=== PATIENT | male | born 1975 | race Caucasian/White ===

== ENCOUNTER 2019-03-29 11:24 | Inpatient (IN) | payer BC ==
[2019-03-29] MEDS ORDERED: SODIUM CHLORIDE 0.9% 1,000 ML IV STA (11:33)
[2019-03-29] MEDS ORDERED: ONDANSETRON 4 MG/2 ML VIAL IVP STA (11:34)
[2019-03-29] MEDS ORDERED: MORPHINE SULFATE 4 MG/ML SYRINGE IVP PRN (11:55)
--- NOTE | 2019-03-29 11:58 | ED ---
General Adult HPI - General Chief complaint: Abdominal Pain Stated complaint: abd pain, vomiting Time Seen by Provider: 03/29/19 11:33 Source: patient Mode of arrival: ambulatory Limitations: no limitations - History of Present Illness Initial comments: Dictation was produced using [employer] dictation software. please excuse any grammatical, word or spelling errors. Chief Complaint: 43-year-old male in no significant comorbidities presents with abdominal pain, nausea. History of Present Illness: Patient is a 43-year-old male he has no significant comorbidities. Patient states that over the last 2-3 days has been having worsening abdominal pain, nausea and vomiting. Patient states that he has not been passing gas or having bowel movements over the last 48-72 hours. Patient has any fevers. States that his pain is diffuse however concentrated in the left upper and left lower quadrant. Denies any history of abdominal surgery. Been eating. However has been drinking. His emesis is bilious in color. The ROS documented in this emergency department record has been reviewed and confirmed by me. Those systems with pertinent positive or negative responses have been documented in the HPI. All other systems are other negative and/or noncontributory. PHYSICAL EXAM: General Impression: Alert and oriented x3, acute distress secondary to pain HEENT: Normocephalic atraumatic, extra-ocular movements intact, pupils equal and reactive to light bilaterally, mucous membranes moist. Cardiovascular: Heart regular rate and rhythm, S1&S2 audible, no murmurs, rubs or gallops Chest: Lungs clear to auscultation bilaterally, no rhonchi, no wheeze, no rales Abdomen: Hypoactive bowel sounds, diffuse abdominal tenderness, positive tympany Musculoskeletal: Pulses present and equal in all extremities, no peripheral jeremiah ma Motor: no focal deficits noted Neurological: CN II-XII grossly intact, no focal motor or sensory deficits noted Skin: Intact with no visualized rashes Psych: Normal affect and mood ED course: 43-year-old male presents with chief complaint of nausea, vomiting and abdominal pain for 3 days. Sans upon arrival shows heart rate 140, worse vital signs within acceptable limits. Laboratory evaluation obtained. Leukocytosis 20.2, metabolic panel is grossly unremarkable. Patient is lipase of 4,087. Computed tomography scan of the abdomen and pelvis shows a complex acute pancreatitis. Patient given intravenous fluids, IV analgesia. Patient to be admitted with consultation to gastroenterology. More history was obtained from patient. He drinks EtOH frequently. This is likely secondary to biliary sludge causing occlusion of the pancreatic duct system. At this point we will withhold any ultrasound at this time. EKG interpretation: Ventricular rate 136, sinus tachycardia, WY interval 126, QRS 80, QTc 466. No WY prolongation, no QTC prolongation, no ST or T-wave changes noted. No old EKG for comparison Overall, this EKG is unremarkable - Related Data Home Medications Medication Instructions Recorded Confirmed No Known Home Medications 03/29/19 03/29/19 Allergies Allergy/AdvReac Type Severity Reaction Status Date / Time No Known Allergies Allergy Verified 03/29/19 11:51 Review of Systems ROS Statement: Those systems with pertinent positive or pertinent negative responses have been documented in the HPI. ROS Other: All systems not noted in ROS Statement are negative. Past Medical History Past Medical History: No Reported History History of Any Multi-Drug Resistant Organisms: None Reported Past Surgical History: No Surgical Hx Reported Past Psychological History: No Psychological Hx Reported Smoking Status: Current every day smoker Past Alcohol Use History: Abuse, Daily, Heavy Past Drug Use History: Marijuana General Exam Limitations: no limitations Course Vital Signs 03/29/19 11:27 Temperature 99.2 F Pulse Rate 140 H Respiratory 20 Rate Blood Pressure 147/104 O2 Sat by Pulse 99 Oximetry Medical Decision Making - Lab Data Result diagrams: 03/29/19 11:50 03/29/19 11:50 Lab Results 03/29/19 03/29/19 03/29/19 Range/Units 11:50 11:50 11:50 WBC 20.2 H (3.8-10.6) k/uL RBC 4.82 (4.30-5.90) m/uL Hgb 16.6 (13.0-17.5) gm/dL Hct 46.3 (39.0-53.0) % MCV 95.9 (80.0-100.0) fL MCH 34.5 (25.0-35.0) pg MCHC 35.9 (31.0-37.0) g/dL RDW 11.8 (11.5-15.5) % Plt Count 272 (150-450) k/uL Neutrophils % 90 % Lymphocytes % 3 % Monocytes % 3 % Eosinophils % 2 % Basophils % 2 % Neutrophils # 18.2 H (1.3-7.7) k/uL Lymphocytes # 0.6 L (1.0-4.8) k/uL Monocytes # 0.7 (0-1.0) k/uL Eosinophils # 0.3 (0-0.7) k/uL Basophils # 0.3 H (0-0.2) k/uL Sodium 135 L (137-145) mmol/L Potassium 3.8 (3.5-5.1) mmol/L Chloride 93 L (98-107) mmol/L Carbon Dioxide 26 (22-30) mmol/L Anion Gap 16 mmol/L BUN 20 (9-20) mg/dL Creatinine 0.83 (0.66-1.25) mg/dL Est GFR (CKD-EPI)AfAm >90 (>60 ml/min/1.73 sqM) Est GFR (CKD-EPI)NonAf >90 (>60 ml/min/1.73 sqM) Glucose 166 H (74-99) mg/dL Plasma Lactic Acid Husam 1.9 (0.7-2.0) mmol/L Calcium 9.6 (8.4-10.2) mg/dL Total Bilirubin 1.6 H (0.2-1.3) mg/dL AST 34 (17-59) U/L ALT 52 (21-72) U/L Alkaline Phosphatase 78 (38-126) U/L Total Protein 7.7 (6.3-8.2) g/dL Albumin 4.5 (3.5-5.0) g/dL Lipase 4087 H (23-300) U/L Urine Color Urine Appearance (Clear) Urine pH (5.0-8.0) Ur Specific Hope (1.001-1.035) Urine Protein (Negative) Urine Glucose (UA) (Negative) Urine Ketones (Negative) Urine Blood (Negative) Urine Nitrite (Negative) Urine Bilirubin (Negative) Urine Urobilinogen (<2.0) mg/dL Ur Leukocyte Esterase (Negative) Urine RBC (0-5) /hpf Urine WBC (0-5) /hpf Ur Squamous Epith Cells (0-4) /hpf Hyaline Casts (0-2) /lpf Urine Mucus (None) /hpf 03/29/19 Range/Units 13:15 WBC (3.8-10.6) k/uL RBC (4.30-5.90) m/uL Hgb (13.0-17.5) gm/dL Hct (39.0-53.0) % MCV (80.0-100.0) fL MCH (25.0-35.0) pg MCHC (31.0-37.0) g/dL RDW (11.5-15.5) % Plt Count (150-450) k/uL Neutrophils % % Lymphocytes % % Monocytes % % Eosinophils % % Basophils % % Neutrophils # (1.3-7.7) k/uL Lymphocytes # (1.0-4.8) k/uL Monocytes # (0-1.0) k/uL Eosinophils # (0-0.7) k/uL Basophils # (0-0.2) k/uL Sodium (137-145) mmol/L Potassium (3.5-5.1) mmol/L Chloride (98-107) mmol/L Carbon Dioxide (22-30) mmol/L Anion Gap mmol/L BUN (9-20) mg/dL Creatinine (0.66-1.25) mg/dL Est GFR (CKD-EPI)AfAm (>60 ml/min/1.73 sqM) Est GFR (CKD-EPI)NonAf (>60 ml/min/1.73 sqM) Glucose (74-99) mg/dL Plasma Lactic Acid Husam (0.7-2.0) mmol/L Calcium (8.4-10.2) mg/dL Total Bilirubin (0.2-1.3) mg/dL AST (17-59) U/L ALT (21-72) U/L Alkaline Phosphatase (38-126) U/L Total Protein (6.3-8.2) g/dL Albumin (3.5-5.0) g/dL Lipase (23-300) U/L Urine Color Yellow Urine Appearance Clear (Clear) Urine pH 6.5 (5.0-8.0) Ur Specific Hope >1.050 H (1.001-1.035) Urine Protein 2+ H (Negative) Urine Glucose (UA) Negative (Negative) Urine Ketones Negative (Negative) Urine Blood Small H (Negative) Urine Nitrite Negative (Negative) Urine Bilirubin Negative (Negative) Urine Urobilinogen <2.0 (<2.0) mg/dL Ur Leukocyte Esterase Negative (Negative) Urine RBC 1 (0-5) /hpf Urine WBC 1 (0-5) /hpf Ur Squamous Epith Cells 1 (0-4) /hpf Hyaline Casts 1 (0-2) /lpf Urine Mucus Rare H (None) /hpf Disposition Clinical Impression: Pancreatitis Disposition: ADMITTED IP TO THIS HOSP Condition: Fair Referrals: None,Stated [Primary Care Provider] - 1-2 days Decision Time: 13:48
[2019-03-29 12:05] LABS: Basophils # (A) 0.3 k/uL (0-0.2); Basophils % (A) 2 %; Eosinophils # (A) 0.3 k/uL (0-0.7); Eosinophils % (A) 2 %; HCT 46.3 % (39.0-53.0); HGB 16.6 gm/dL (13.0-17.5); Lymphocytes # (A) 0.6 k/uL (1.0-4.8); Lymphocytes % (A) 3 %; MCH 34.5 pg (25.0-35.0); MCHC 35.9 g/dL (31.0-37.0); MCV 95.9 fL (80.0-100.0); Mean Platelet Volume 6.9; Monocytes # (A) 0.7 k/uL (0-1.0); Monocytes % (A) 3 %; Neutrophils # (A) 18.2 k/uL (1.3-7.7); Neutrophils % (A) 90 %; Platelet Count 272 k/uL (150-450); RBC 4.82 m/uL (4.30-5.90); RDW 11.8 % (11.5-15.5); WBC 20.2 k/uL (3.8-10.6)
[2019-03-29 12:15] LABS: ALT 52 U/L (21-72); AST 34 U/L (17-59); African American GFR (CKD) >90 (>60 ml/min/1.73 sqM); Albumin 4.5 g/dL (3.5-5.0); Alkaline Phosphatase 78 U/L (38-126); Anion Gap 16 mmol/L; Blood Urea Nitrogen 20 mg/dL (9-20); Calcium 9.6 mg/dL (8.4-10.2); Carbon Dioxide 26 mmol/L (22-30); Chloride 93 mmol/L (98-107); Glucose 166 mg/dL (74-99); Potassium 3.8 mmol/L (3.5-5.1); Sodium 135 mmol/L (137-145); Total Bilirubin 1.6 mg/dL (0.2-1.3); Total Protein 7.7 g/dL (6.3-8.2)
--- NOTE | 2019-03-29 12:16 | XR ---
EXAMINATION TYPE: XR abdomen acute w cxr DATE OF EXAM: 03/29/2019 COMPARISON: None HISTORY: Abdomen pain and nausea TECHNIQUE: Supine, upright, and chest views of the abdomen and chest are obtained. FINDINGS: Chest x-ray shows no acute cardiopulmonary disease. There are overlying cardiac leads. There is no evidence for pneumoperitoneum. The bowel gas pattern is unremarkable as there is air throughout nondilated small and large bowel. No sizeable air fluid levels. No mass effects are seen. No unusual calcifications, calcifications in the pelvis likely are territory sales representative of phleboliths.. IMPRESSION: Unremarkable study
--- NOTE | 2019-03-29 12:47 | CT ---
EXAMINATION TYPE: CT abdomen pelvis w con DATE OF EXAM: 03/29/2019 COMPARISON: None. HISTORY: Abdominal pain with vomiting CT DLP: 1466.5 mGycm, Automated Exposure Control for Dose Reduction was Utilized. CONTRAST: CT scan of the abdomen and pelvis is performed without oral and with IV Contrast, patient injected wi th 100 mL of Isovue 300. FINDINGS: LUNG BASES: Dependent atelectasis both bases.. LIVER/GB: Liver is upper limits of normal in size and diffusely hypodense consistent with diffuse fat ty infiltration. PANCREAS: Pancreas is mildly diffusely prominent with [id number] ill-defined fluid and fat stra nding. Slightly more focal fluid inferiorly axial image 36. Adjacent small bowel loops are mildly pro minent. No areas of nonenhancement. No well-formed fluid collections. SPLEEN: No significant abnormality is seen. ADRENALS: No significant abnormality is seen. KIDNEYS: No significant abnormality is seen. BOWEL: Suboptimal without enteric contrast. Suboptimal distention of stomach. Mild wall thickening ne ar ligament of Treitz presumed reactive related to pancreatic findings. No suspicious small or large bowel dilatation. Mild wall thickening in the left colon favors product of poor distention extending from sigmoid colon to rectum. PROSTATE/SEMINAL VESICLES: No gross abnormality seen. LYMPH NODES: No greater than 1cm abdominal or pelvic lymph nodes are appreciated. OSSEOUS STRUCTURES: No significant abnormality is seen. OTHER: Small amount of free fluid in pelvis axial image 81 presumed product of pancreas findings. Mitch e minimal to mild ill-defined fluid extends from pancreas into the lower abdomen along the mesentery. Some scattered left-sided pelvic phleboliths. IMPRESSION: CT findings consistent with a fairly moderate but uncomplicated acute pancreatitis withou t necrosis or well-formed fluid collection seen currently.
[2019-03-29] MEDS ORDERED: NALOXONE 0.4 MG/ML 1 ML VIAL IV PRN (13:42)
[2019-03-29] MEDS ORDERED: ONDANSETRON 4 MG/2 ML VIAL IVP PRN (13:42)
[2019-03-29] MEDS ORDERED: MORPHINE SULFATE 4 MG/ML SYRINGE IV PRN (13:42)
[2019-03-29] MEDS ORDERED: ACETAMINOPHEN TAB 325 MG TAB PO PRN (13:42)
[2019-03-29 13:43] LABS: Appearance,Urine Clear (Clear); Bilirubin,Urine Negative (Negative); Blood,Urine Small (Negative); Color,Urine Yellow; Glucose,Urine (UA) Negative (Negative); Hyaline Casts,Urine 1 /lpf (0-2); Ketones,Urine Negative (Negative); Leukocyte Esterase,Urine Negative (Negative); Mucus,Urine Rare /hpf; Nitrite,Urine Negative (Negative); PH, Urine 6.5 (5.0-8.0); Protein,Urine 2+ (Negative); RBC,Urine 1 /hpf (0-5); Squamous Epithelial Cell,Urine 1 /hpf (0-4); Urobilinogen,Urine <2.0 mg/dL (<2.0)
[2019-03-29 13:44] LABS: Specific Gravity,Urine >1.050 (1.001-1.035)
[2019-03-29 14:30] VITALS: BMI 32.3
[2019-03-29] MEDS ORDERED: HYDROmorphone 1 MG/ML 1 ML SYRINGE IVP STA (14:40)
[2019-03-29] MEDS ORDERED: SODIUM CHLORIDE 0.9% 2,000 ML IV ONE (14:40)
[2019-03-29] MEDS ORDERED: hydrALAZINE HCL 20 MG/ML 1 ML VIAL IVP STA (14:40)
[2019-03-29] MEDS ORDERED: LABETALOL 5 MG/ML VIAL MDV IVP STA (14:45)
--- NOTE | 2019-03-29 14:59 | P.HPIM ---
History of Present Illness H&P Date: 03/29/19 The patient is a 43-year-old male with a past medical history of chronic alcoholism and acid reflux who presents to the ER via private vehicle with chief complaint of intractable nausea and vomiting and abdominal pain. Apparently the patient began having nausea with decreased ability to keep any fluid or liquids down beginning on Monday evening, he reports nonbloody bilious emesis and generalized diffuse abdominal pain severe sharp intermittent with radiation to his back beginning yesterday morning. The patient denies any bright red blood per rectum or dark melanotic stools denies any diarrhea constipation, he does report subjective fevers chills night sweats over the last 2 days. He reports to be drinking approximately half a pint of liquor daily (vodka) along with 4 beers reports that this is down from his previous consumption of approximately a fifth daily. Patient reports nonproductive cough is a smoker, denies any chest pain or shortness of breath. The patient has never been hospitalized for pancreatitis And he has only sought treatment once for his alcoholism. In the ER the patient have a comprehensive white count was 20.2serum sodium 135 blood sugar 166 total bilirubin 1.6 and lipase is 4087. Urinalysis showed elevated specific gravity 1.050, 2+ protein and small blood. EKG showed sinus tachycardia with a rate of 136. CT abdomen and pelvis was consistent with a fairly moderate but uncomplicated acute pancreatitis without necrosis or fluid collection. The patient was given morphine and a liter of normal saline Review of Systems Pertinent positives per HPI all other review of systems are otherwise negative Past Medical History Past Medical History: GERD/Reflux History of Any Multi-Drug Resistant Organisms: None Reported Past Surgical History: No Surgical Hx Reported Additional Past Anesthesia/Blood Transfusion Reaction / Comment(s): Pt has never had anesthesia Smoking Status: Current every day smoker - Past Family History Father Family Medical History: No Reported History Additional Family Medical History / Comment(s): Father has ETOH abuse Mother Family Medical History: No Reported History Additional Family Medical History / Comment(s): Mother is healthy. Medications and Allergies Home Medications Medication Instructions Recorded Confirmed Type No Known Home Medications 03/29/19 03/29/19 History Allergies Allergy/AdvReac Type Severity Reaction Status Date / Time No Known Allergies Allergy Verified 03/29/19 11:51 Physical Exam Vitals: Vital Signs Temp Pulse Resp BP Pulse Ox 03/29/19 14:12 99 F 122 H 18 164/119 97 03/29/19 11:27 99.2 F 140 H 20 147/104 99 Intake and Output 03/28/19 03/29/19 03/29/19 22:59 06:59 14:59 Other: Weight 96.298 kg Constitutional: Mild to moderate distress due to pain, conversant, pleasant Eyes: Anicteric sclerae, moist conjunctiva, no lid-lag, PERRLA ENMT: NC/AT,Oropharynx clear, no erythema, exudates Neck:Supple, FROM, no masses, or JVD, No carotid bruits; No thyromegaly Lungs: Clear to auscultation, Clear to percussion, Normal respiratory effort, no accessory muscle use Cardiovascular: Tachycardic with regular rhythm, No murmurs, gallops, or rubs no peripheral edema Abdominal: Soft diffusely tender to palpation, nom distended, no guarding, no rebound or rigidity, hypoactive bowel sounds No hepatomegaly, No splenomegaly Skin: Normal temperature, tone, texture, turgor, No induration No subcutaneous nodules, No rash, lesions, No ulcers Extremities:No digital cyanosis No clubbing, Pedal pulses intact and symmetrical Radial pulses intact and symmetrical Normal gait and station, No calf tenderness Psychiatric: Alert and oriented to person, place and time, Appropriate affect Intact judgement Neuro: Muscles Strength 5/5 in all 4 extremities, Sensation to light touch grossly present throughout, Cranial nerves II-XII grossly intact. No focal sensory deficits Results CBC & Chem 7: 03/29/19 11:50 03/29/19 11:50 Labs: Abnormal Lab Results - Last 24 Hours (Table) 03/29/19 03/29/19 03/29/19 Range/Units 11:50 11:50 13:15 WBC 20.2 H (3.8-10.6) k/uL Neutrophils # 18.2 H (1.3-7.7) k/uL Lymphocytes # 0.6 L (1.0-4.8) k/uL Basophils # 0.3 H (0-0.2) k/uL Sodium 135 L (137-145) mmol/L Chloride 93 L (98-107) mmol/L Glucose 166 H (74-99) mg/dL Total Bilirubin 1.6 H (0.2-1.3) mg/dL Lipase 4087 H (23-300) U/L Ur Specific [place] >1.050 H (1.001-1.035) Urine Protein 2+ H (Negative) Urine Blood Small H (Negative) Urine Mucus Rare H (None) /hpf Thrombosis Risk Factor Assmnt - Choose All That Apply Any of the Below Risk Factors Present?: Yes Each Factor Represents 1 point: Age 41-60 years, Obesity (BMI >25) Other Risk Factors: No Other congenital or acquired thrombophilia - If yes, enter type in comment: No Thrombosis Risk Factor Assessment Total Risk Factor Score: 2 Thrombosis Risk Factor Assessment Level: Low Risk Assessment and Plan (1) Acute pancreatitis Current Visit: Yes Status: Acute Code(s): K85.90 - ACUTE PANCREATITIS WITHOUT NECROSIS OR INFECTION, UNSP SNOMED Code(s): 173402003 (2) SIRS (systemic inflammatory response syndrome) Current Visit: Yes Status: Acute Code(s): R65.10 - SIRS OF NON-INFECTIOUS ORIGIN W/O ACUTE ORGAN DYSFUNCTION SNOMED Code(s): 262874770 (3) Leukocytosis Current Visit: Yes Status: Acute Code(s): D72.829 - ELEVATED WHITE BLOOD CELL COUNT, UNSPECIFIED SNOMED Code(s): 052953369 (4) Abdominal pain Current Visit: Yes Status: Acute Code(s): R10.9 - UNSPECIFIED ABDOMINAL PAIN SNOMED Code(s): 58231416 (5) GERD (gastroesophageal reflux disease) Current Visit: Yes Status: Acute Code(s): K21.9 - GASTRO-ESOPHAGEAL REFLUX DISEASE WITHOUT ESOPHAGITIS SNOMED Code(s): 578239105 (6) Elevated blood-pressure reading without diagnosis of hypertension Current Visit: Yes Status: Acute Code(s): R03.0 - ELEVATED BLOOD-PRESSURE READING, W/O DIAGNOSIS OF HTN SNOMED Code(s): 418303912 Plan: The patient is a admitted anticipated greater than 2 midnight stay with acute pancreatitis likely alcohol induced after presenting abdominal pain and Intractable nausea vomiting with elevated serum lipase and CT findings consistent with moderate not computed acute pancreatitis. Right upper quadrant US is ordered to rule out hepatobiliary disease, serum alcohol level, PT/INR will be checked. Patient will be bolused 2 L normal saline as he is tachycardic and also meeting sirs criteria likely secondary to his underlying pancreatitis, we'll order chest x-ray and blood cultures. Supportive treatment with Dilaudid, Zofran and continue maintenance fluids at 1 20 mL an hour. The patient is also to have elevated blood pressure likely secondary to pain and is tachycardic secondary to dehydration. We'll give him a dose of hydralazine and monitor his blood pressure closely. We'll recheck labs and lipase and continue to monitor closely on telemetry unit. The patient is also placed on SCDs/heparin & Protonix for DVT and GI prophylaxis respectively CODE STATUS: Full code Discussed plan of care with: Patient and ER physician Anticipated discharge: 2-[address]: Home Time with Patient: Greater than 30
[2019-03-29 15:30] LABS: Prothrombin Time 10.6 sec (9.0-12.0)
--- NOTE | 2019-03-29 16:19 | US ---
EXAMINATION TYPE: US abdomen limited DATE OF EXAM: 03/29/2019 COMPARISON: CT same date CLINICAL HISTORY: acute pancreatitis rule out hepatobiliary disease. ABD pain EXAM MEASUREMENTS: Liver Length: 21.2 cm Gallbladder Wall: 0.4 cm CBD: 0.7-0.9 cm Right Kidney: 12.9 x 4.7 x 5.6 cm Pancreas: Obscured by bowel gas, and enlarged liver Liver: Enlarged, difficult to penetrate Gallbladder: Sludge with thickened wall Evidence for sonographic Mcclelland's sign: No CBD: Dilated ranging in size from 0.7- 0.9 cm Right Kidney: Extrarenal pelvis suspected within the right kidney, cortical medullary differentiation is maintained. No evident renal mass. No evident ascites. IMPRESSION: Exam is somewhat limited. Correlate for hepatic steatosis, hepatocellular disease. There is hepatomegaly. Gallbladder wall thickening tumefactive sludge, dilated common bile duct, recommend gastroenterology consult.
[2019-03-29] MEDS: SODIUM CHLORIDE 0.9% 1,000 ML IV SCH (16:26)
[2019-03-29] MEDS: HEPARIN SODIUM,PORCINE 5,000 UNIT/ML 1 ML VIAL SQ SCH ×2 (16:30→23:09)
[2019-03-29] MEDS ORDERED: LORazepam 2 MG/ML INJ IV PRN ×2 (18:58)
[2019-03-29] MEDS: HYDROmorphone 1 MG/ML 1 ML SYRINGE IVP PRN ×2 (19:28→23:13)
[2019-03-29] MEDS: PANTOPRAZOLE 40 MG/10 ML VIAL IVP SCH (19:28)
[2019-03-29] MEDS: ONDANSETRON 4 MG/2 ML VIAL IVP PRN ×2 (19:31→23:15)
[2019-03-29] MEDS: LORazepam 2 MG/ML INJ IV PRN (21:02)
[2019-03-29] MEDS ORDERED: SODIUM CHLORIDE 0.9% 1,000 ML IV ONE (23:00)
[2019-03-30] MEDS: SODIUM CHLORIDE 0.9% 1,000 ML IV SCH ×4 (00:17→20:18)
[2019-03-30] MEDS: HYDROmorphone 1 MG/ML 1 ML SYRINGE IVP PRN ×5 (03:37→20:18)
[2019-03-30] MEDS: ONDANSETRON 4 MG/2 ML VIAL IVP PRN ×5 (03:37→20:18)
[2019-03-30] MEDS: HEPARIN SODIUM,PORCINE 5,000 UNIT/ML 1 ML VIAL SQ SCH ×2 (07:46→16:05)
[2019-03-30] MEDS: PANTOPRAZOLE 40 MG/10 ML VIAL IVP SCH ×2 (07:46→20:13)
[2019-03-30 07:56] LABS: Basophils # (A) 0.1 k/uL (0-0.2); Basophils % (A) 1 %; Eosinophils # (A) 0.2 k/uL (0-0.7); Eosinophils % (A) 2 %; HCT 35.9 % (39.0-53.0); Lymphocytes # (A) 0.4 k/uL (1.0-4.8); Lymphocytes % (A) 4 %; MCH 33.6 pg (25.0-35.0); MCV 98.8 fL (80.0-100.0); Mean Platelet Volume 7.5; Monocytes # (A) 0.2 k/uL (0-1.0); Monocytes % (A) 2 %; Neutrophils # (A) 10.3 k/uL (1.3-7.7); Neutrophils % (A) 91 %; Platelet Count 210 k/uL (150-450); RBC 3.64 m/uL (4.30-5.90); RDW 12.9 % (11.5-15.5); WBC 11.3 k/uL (3.8-10.6)
[2019-03-30 08:02] LABS: ALT 40 U/L (21-72); AST 28 U/L (17-59); African American GFR (CKD) >90 (>60 ml/min/1.73 sqM); Albumin 3.4 g/dL (3.5-5.0); Alkaline Phosphatase 54 U/L (38-126); Anion Gap 10 mmol/L; Blood Urea Nitrogen 14 mg/dL (9-20); Calcium 8.1 mg/dL (8.4-10.2); Carbon Dioxide 24 mmol/L (22-30); Chloride 101 mmol/L (98-107); Cholesterol 194 mg/dL (<200); Glucose 111 mg/dL (74-99); HDL Cholesterol 33 mg/dL (40-60); Potassium 3.8 mmol/L (3.5-5.1); Sodium 135 mmol/L (137-145); Total Bilirubin 0.8 mg/dL (0.2-1.3); Total Protein 6.1 g/dL (6.3-8.2); Triglycerides 458 mg/dL (<150)
[2019-03-30 08:09] LABS: HGB 12.2 gm/dL (13.0-17.5)
--- NOTE | 2019-03-30 10:34 | P.PN ---
Subjective Progress Note Date: 03/30/19 Patient seen and examined and follow-up, reports improvement of his pain and nausea not quite ready to eat, denies any subjective fevers chills or night sweats. Continues to be tachycardic, lipase down to 1092 from 4087. White count also resolving from 20.2-11.3. Right upper quadrant ultrasound suggesting hepatic steatosis hepatocellular disease and hepatomegaly gallbladder wall thickening with sludge dilated common bile duct. Serum alcohol level was less than 10 Objective - Vital Signs Vital signs: Vital Signs Temp 98.4 F 03/30/19 07:00 Pulse 127 H 03/30/19 07:00 Resp 18 03/30/19 08:15 BP 148/83 03/30/19 07:00 Pulse Ox 94 L 03/30/19 07:00 Intake & Output 03/29/19 03/30/19 03/30/19 18:59 06:59 18:59 Intake Total 1260 Balance 1260 Weight 96.298 kg Intake: Intake, IV Titration 1260 Amount Sodium Chloride 0.9% 1, 1260 000 ml @ 120 mls/hr IV . Q8H20M [facility] Rx#:[id number] Other: Voiding Method Toilet - Exam Constitutional: No acute distress, conversant, pleasant Eyes: Anicteric sclerae, moist conjunctiva, no lid-lag, PERRLA ENMT: NC/AT,Oropharynx clear, no erythema, exudates Neck:Supple, FROM, no masses, or JVD, No carotid bruits; No thyromegaly Lungs: Clear to auscultation, Clear to percussion, Normal respiratory effort, no accessory muscle use Cardiovascular: Regular rhythm tachycardic, No murmurs, gallops, or rubs no peripheral edema Abdominal: Soft tender abdomen diffusely, mildly distended, no guarding, no rebound or rigidity, hypoactive bowel sounds Skin: Normal temperature, tone, texture, turgor, No induration No subcutaneous nodules, No rash, lesions, No ulcers Extremities:No digital cyanosis No clubbing, Pedal pulses intact and symmetrical Radial pulses intact and symmetrical Normal gait and station, No calf tenderness Psychiatric: Alert and oriented to person, place and time, Appropriate affect Intact judgement Neuro: Muscles Strength 5/5 in all 4 extremities, Sensation to light touch grossly present throughout, Cranial nerves II-XII grossly intact. No focal sensory deficits - Labs CBC & Chem 7: 03/30/19 07:35 03/30/19 07:35 Labs: Abnormal Lab Results - Last 24 Hours (Table) 03/29/19 03/29/19 03/29/19 Range/Units 11:50 11:50 13:15 WBC 20.2 H (3.8-10.6) k/uL RBC (4.30-5.90) m/uL Hgb (13.0-17.5) gm/dL Hct (39.0-53.0) % Neutrophils # 18.2 H (1.3-7.7) k/uL Lymphocytes # 0.6 L (1.0-4.8) k/uL Basophils # 0.3 H (0-0.2) k/uL Sodium 135 L (137-145) mmol/L Chloride 93 L (98-107) mmol/L Glucose 166 H (74-99) mg/dL Calcium (8.4-10.2) mg/dL Total Bilirubin 1.6 H (0.2-1.3) mg/dL Total Protein (6.3-8.2) g/dL Albumin (3.5-5.0) g/dL Triglycerides (<150) mg/dL HDL Cholesterol (40-60) mg/dL Lipase 4087 H (23-300) U/L Ur Specific [place]ansom >1.050 H (1.001-1.035) Urine Protein 2+ H (Negative) Urine Blood Small H (Negative) Urine Mucus Rare H (None) /hpf 03/30/19 03/30/19 Range/Units 07:35 07:35 WBC 11.3 H (3.8-10.6) k/uL RBC 3.64 L (4.30-5.90) m/uL Hgb 12.2 L D (13.0-17.5) gm/dL Hct 35.9 L (39.0-53.0) % Neutrophils # 10.3 H (1.3-7.7) k/uL Lymphocytes # 0.4 L (1.0-4.8) k/uL Basophils # (0-0.2) k/uL Sodium 135 L (137-145) mmol/L Chloride (98-107) mmol/L Glucose 111 H (74-99) mg/dL Calcium 8.1 L (8.4-10.2) mg/dL Total Bilirubin (0.2-1.3) mg/dL Total Protein 6.1 L (6.3-8.2) g/dL Albumin 3.4 L (3.5-5.0) g/dL Triglycerides 458 H (<150) mg/dL HDL Cholesterol 33 L (40-60) mg/dL Lipase 1092 H (23-300) U/L Ur Specific [place]ansom (1.001-1.035) Urine Protein (Negative) Urine Blood (Negative) Urine Mucus (None) /hpf Assessment and Plan (1) Acute pancreatitis Narrative/Plan: * Likely multifactorial ongoing alcohol use with hypertriglyceridemia versus possible hepatobiliary disease * Right upper quadrant ultrasound suggesting hepatic steatosis hepatocellular disease and hepatomegaly gallbladder wall thickening with sludge dilated com mon bile duct. * Lipase trending down with current regimen continue nothing by mouth, IV Dilaudid, and IV fluids * GI consult requested from ER Current Visit: Yes Status: Acute Code(s): K85.90 - ACUTE PANCREATITIS WITHOUT NECROSIS OR INFECTION, UNSP SNOMED Code(s): 479613926 (2) SIRS (systemic inflammatory response syndrome) Narrative/Plan: * Secondary to acute pancreatitis Current Visit: Yes Status: Acute Code(s): R65.10 - SIRS OF NON-INFECTIOUS ORIGIN W/O ACUTE ORGAN DYSFUNCTION SNOMED Code(s): 338982870 (3) Leukocytosis Narrative/Plan: * Likely acute phase reactant with stress response due to acute pancreatitis * trending down nicely without antibiotics Current Visit: Yes Status: Acute Code(s): D72.829 - ELEVATED WHITE BLOOD CELL COUNT, UNSPECIFIED SNOMED Code(s): 737291441 (4) Abdominal pain Narrative/Plan: * Secondary to above * Continue current pain regimen Current Visit: Yes Status: Acute Code(s): R10.9 - UNSPECIFIED ABDOMINAL PAIN SNOMED Code(s): 69411768 (5) GERD (gastroesophageal reflux disease) Narrative/Plan: * Continue PPI therapy Current Visit: Yes Status: Chronic Code(s): K21.9 - GASTRO-ESOPHAGEAL REFLUX DISEASE WITHOUT ESOPHAGITIS SNOMED Code(s): 351269870 (6) Elevated blood-pressure reading without diagnosis of hypertension Narrative/Plan: * Continue to monitor blood pressure much improved today Current Visit: Yes Status: Acute Code(s): R03.0 - ELEVATED BLOOD-PRESSURE READING, W/O DIAGNOSIS OF HTN SNOMED Code(s): 698069262 (7) Chronic alcohol dependence, continuous Narrative/Plan: * Patient counseled on alcohol cessation but currently not ready to give up alc ohol * symptom triggered CIWA withdrawal protocol with Ativan when necessary Current Visit: Yes Status: Chronic Code(s): F10.20 - ALCOHOL DEPENDENCE, UNCOMPLICATED SNOMED Code(s): 861636976 Plan: Continue current management continue current diet status until tomorrow we'll advance diet in the morning nothing by mouth except ice chips for now * Awaiting GI consultation recommendations
[2019-03-30] MEDS: LORazepam 2 MG/ML INJ IV PRN ×2 (12:50→17:55)
--- NOTE | 2019-03-30 14:31 | CONS ---
CONSULTATION DATE OF SERVICE: 03/30/2019 REQUESTING PHYSICIAN: Dr. Buitrago. REASON FOR CONSULTATION: Acute pancreatitis. HISTORY OF PRESENT ILLNESS: The patient is a 43-year-old pleasant white male with history of heavy alcoholism and gastroesophageal reflux disease who was admitted to hospital with acute onset of severe epigastric pain associated with nausea, vomiting for the last 4 days duration. The pain continued to progressively get worse and yesterday came into the emergency room and subsequently admitted to the hospital for acute pancreatitis. He was noted to have elevated amylase and lipase. He never had these symptoms in the past. He has been drinking alcohol heavily for the last 2 years. He drinks about a pint a day and prior to that he used to drink a fifth a day. He also drinks about 4 to 5 cans of beer on a daily basis. Never had pancreatitis in the past. In the ER, he was noted to have a lipase of 4087. PAST MEDICAL HISTORY: Significant for heavy alcoholism, history of gastroesophageal reflux disease. MEDICATIONS AT HOME: None. ALLERGIES: No known drug allergies. SOCIAL HISTORY: Heavy alcohol use and chronic smoker. FAMILY HISTORY: Father alcohol abuse. Mother is healthy. REVIEW OF SYSTEMS: CARDIOPULMONARY: No chest pain or shortness of breath. GENITOURINARY: No dysuria or hematuria. MUSCULOSKELETAL: Unremarkable. SKIN: Unremarkable. ENDOCRINE: Unremarkable. PSYCHIATRIC: Unremarkable. NEUROLOGY: Unremarkable. ENT/VISION: Unremarkable. CONSTITUTIONAL: No recent weight loss. No fever, chills, night sweats. PHYSICAL EXAMINATION: On physical examination, he appears comfortable. No apparent distress. Vital signs are stable. Blood pressure is 132/81, pulse rate is 128, temperature 98.6. HEENT examination unremarkable. Conjunctivae pink. Sclerae anicteric. Oral cavity, no lesions. NECK: No JVD or lymph node enlargement. CHEST: Clear to auscultation. HEART: Regular rate and rhythm. ABDOMEN: Soft. There was mild to moderate tenderness in the epigastric area. Bowel sounds are positive. No organomegaly. EXTREMITIES: No pedal edema. SKIN: No rashes. NEURO: Alert and oriented x3. No focal deficits. LABS: WBC 20.2, hemoglobin 16.6, platelets normal. Lipase was 4087. Today, lipase is 1092. ALT, AST normal. T bilirubin 0.8, alkaline phosphatase 54. Triglycerides 458. WBC 11.3 today, hemoglobin 12.2, and platelets are normal. Basic metabolic panel is within normal limits. CT of the abdomen and pelvis done in the emergency room yesterday showed changes consistent with moderate uncomplicated acute pancreatitis, gallbladder was normal, diffuse fatty infiltration of the liver. IMPRESSION: Acute pancreatitis, first episode in this patient who has heavy alcohol abuse for the last several years. Most likely related to alcohol related pancreatitis. CT of the abdomen results reviewed with the patient. He is noted to have elevated lipase, which is gradually improving. RECOMMENDATIONS: 1. Continue with aggressive IV hydration. 2. Symptomatic and supportive care. 3. Start him on a clear liquid diet. 4. Repeat labs in the morning. 5. Abstinence from alcohol and we will follow the patient closely during this hospital stay. Thank you for this consultation. TETE / ANGELICAN: [id number] /
[2019-03-30 18:20] LABS: Hemoglobin A1C 5.7 % (4.0-6.0)
[2019-03-31] MEDS: HEPARIN SODIUM,PORCINE 5,000 UNIT/ML 1 ML VIAL SQ SCH ×4 (00:05→22:33)
[2019-03-31] MEDS: ONDANSETRON 4 MG/2 ML VIAL IVP PRN ×6 (00:06→22:32)
[2019-03-31] MEDS: HYDROmorphone 1 MG/ML 1 ML SYRINGE IVP PRN ×6 (00:06→22:33)
[2019-03-31] MEDS: LORazepam 2 MG/ML INJ IV PRN ×4 (00:06→19:25)
[2019-03-31 06:03] LABS: Basophils # (A) 0.1 k/uL (0-0.2); Basophils % (A) 2 %; Eosinophils # (A) 0.3 k/uL (0-0.7); Eosinophils % (A) 4 %; HCT 34.3 % (39.0-53.0); HGB 11.7 gm/dL (13.0-17.5); Lymphocytes # (A) 0.6 k/uL (1.0-4.8); Lymphocytes % (A) 11 %; MCH 33.9 pg (25.0-35.0); MCHC 34.1 g/dL (31.0-37.0); MCV 99.3 fL (80.0-100.0); Mean Platelet Volume 7.6; Monocytes # (A) 0.3 k/uL (0-1.0); Monocytes % (A) 5 %; Neutrophils # (A) 4.6 k/uL (1.3-7.7); Neutrophils % (A) 78 %; Platelet Count 198 k/uL (150-450); RBC 3.45 m/uL (4.30-5.90); RDW 12.9 % (11.5-15.5); WBC 5.9 k/uL (3.8-10.6)
[2019-03-31 06:15] LABS: ALT 36 U/L (21-72); AST 42 U/L (17-59); African American GFR (CKD) >90 (>60 ml/min/1.73 sqM); Albumin 3.1 g/dL (3.5-5.0); Alkaline Phosphatase 49 U/L (38-126); Anion Gap 7 mmol/L; Blood Urea Nitrogen 11 mg/dL (9-20); Calcium 7.8 mg/dL (8.4-10.2); Carbon Dioxide 28 mmol/L (22-30); Chloride 98 mmol/L (98-107); Glucose 92 mg/dL (74-99); Potassium 3.4 mmol/L (3.5-5.1); Sodium 133 mmol/L (137-145); Total Bilirubin 0.4 mg/dL (0.2-1.3); Total Protein 5.6 g/dL (6.3-8.2)
[2019-03-31] MEDS: PANTOPRAZOLE 40 MG/10 ML VIAL IVP SCH (08:01)
[2019-03-31] MEDS: SODIUM CHLORIDE 0.9% 1,000 ML IV SCH ×3 (10:50→23:39)
--- NOTE | 2019-03-31 11:31 | P.PN ---
Subjective Progress Note Date: 03/31/19 Patient seen and examined and follow-up, reports improvement of his pain and nausea not quite ready to eat, continues on clear liquid diet denies any subjective fevers chills or night sweats. Continues to be tachycardic, lipase down to 651 from 1092 from 4087. White count also resolving. Right upper db drant ultrasound suggesting hepatic steatosis hepatocellular disease and hepatomegaly gallbladder wall thickening with sludge dilated common bile duct. Serum alcohol level was less than 10 Objective - Vital Signs Vital signs: Vital Signs Temp 97.6 F 03/31/19 07:00 Pulse 108 H 03/31/19 07:19 Resp 14 03/31/19 07:19 BP 155/99 03/31/19 07:00 Pulse Ox 94 L 03/31/19 07:00 Intake & Output 03/30/19 03/31/19 03/31/19 18:59 06:59 18:59 Intake Total 400 2280 500 Balance 400 2280 500 Weight 96.298 kg Intake: Intake, IV Titration 1200 Amount Sodium Chloride 0.9% 1, 1200 000 ml @ 120 mls/hr IV . Q8H20M [facility] Rx#:[id number] Oral 400 1080 500 Other: Voiding Method Toilet Toilet # Voids 3 3 - Exam Constitutional: No acute distress, conversant, pleasant Eyes: Anicteric sclerae, moist conjunctiva, no lid-lag, PERRLA ENMT: NC/AT,Oropharynx clear, no erythema, exudates Neck:Supple, FROM, no masses, or JVD, No carotid bruits; No thyromegaly Lungs: Clear to auscultation, Clear to percussion, Normal respiratory effort, no accessory muscle use Cardiovascular: Regular rhythm tachycardic, No murmurs, gallops, or rubs no peripheral edema Abdominal: Soft tender abdomen diffusely, mildly distended, no guarding, no rebound or rigidity, hypoactive bowel sounds Skin: Normal temperature, tone, texture, turgor, No induration No subcutaneous nodules, No rash, lesions, No ulcers Extremities:No digital cyanosis No clubbing, Pedal pulses intact and symmetrical Radial pulses intact and symmetrical Normal gait and station, No calf tenderness Psychiatric: Alert and oriented to person, place and time, Appropriate affect Intact judgement Neuro: Muscles Strength 5/5 in all 4 extremities, Sensation to light touch grossly present throughout, Cranial nerves II-XII grossly intact. No focal sensory deficits - Labs CBC & Chem 7: 03/31/19 05:47 03/31/19 05:47 Labs: Abnormal Lab Results - Last 24 Hours (Table) 03/31/19 03/31/19 Range/Units 05:47 05:47 RBC 3.45 L (4.30-5.90) m/uL Hgb 11.7 L (13.0-17.5) gm/dL Hct 34.3 L (39.0-53.0) % Lymphocytes # 0.6 L (1.0-4.8) k/uL Sodium 133 L (137-145) mmol/L Potassium 3.4 L (3.5-5.1) mmol/L Calcium 7.8 L (8.4-10.2) mg/dL Total Protein 5.6 L (6.3-8.2) g/dL Albumin 3.1 L (3.5-5.0) g/dL Lipase 651 H (23-300) U/L Microbiology - Last 24 Hours (Table) 03/29/19 15:21 Blood Culture - Preliminary Blood No Growth after 24 hours Assessment and Plan (1) Acute pancreatitis Narrative/Plan: * Likely multifactorial ongoing alcohol use with hypertriglyceridemia versus possible hepatobiliary disease * Right upper quadrant ultrasound suggesting hepatic steatosis hepatocellular disease and hepatomegaly gallbladder wall thickening with sludge dilated common bile duct. * Lipase trending down with current regimen continue clear liquid, IV Dilaudid, and IV fluids * Appreciate GI recommendations Current Visit: Yes Status: Acute Code(s): K85.90 - ACUTE PANCREATITIS WITHOUT NECROSIS OR INFECTION, UNSP SNOMED Code(s): 036090062 (2) SIRS (systemic inflammatory response syndrome) Narrative/Plan: * Secondary to acute pancreatitis Current Visit: Yes Status: Acute Code(s): R65.10 - SIRS OF NON-INFECTIOUS ORIGIN W/O ACUTE ORGAN DYSFUNCTION SNOMED Code(s): 822815273 (3) Leukocytosis Narrative/Plan: * Likely acute phase reactant with stress response due to acute pancreatitis * trending down nicely without antibiotics Current Visit: Yes Status: Resolved Code(s): D72.829 - ELEVATED WHITE BLOOD CELL COUNT, UNSPECIFIED SNOMED Code(s): 547799960 (4) Abdominal pain Narrative/Plan: * Secondary to above * Continue current pain regimen Current Visit: Yes Status: Acute Code(s): R10.9 - UNSPECIFIED ABDOMINAL PAIN SNOMED Code(s): 51287822 (5) GERD (gastroesophageal reflux disease) Narrative/Plan: * Continue PPI therapy Current Visit: Yes Status: Chronic Code(s): K21.9 - GASTRO-ESOPHAGEAL REFLUX DISEASE WITHOUT ESOPHAGITIS SNOMED Code(s): 643856623 (6) Elevated blood-pressure reading without diagnosis of hypertension Narrative/Plan: * Continue to monitor blood pressure much improved today Current Visit: Yes Status: Acute Code(s): R03.0 - ELEVATED BLOOD-PRESSURE READING, W/O DIAGNOSIS OF HTN SNOMED Code(s): 181740307 (7) Chronic alcohol dependence, continuous Narrative/Plan: * Patient counseled on alcohol cessation but currently not ready to give up alcohol * symptom triggered CIWA withdrawal protocol with Ativan when necessary Current Visit: Yes Status: Chronic Code(s): F10.20 - ALCOHOL DEPENDENCE, UNCOMPLICATED SNOMED Code(s): 186679996 (8) Hypertriglyceridemia Narrative/Plan: * Consider initiating patient on statin versus fibroid on discharge when able to tolerate by mouth Current Visit: Yes Status: Acute Code(s): E78.1 - PURE HYPERGLYCERIDEMIA SNOMED Code(s): 798229868 Plan: Anticipated discharge 1-2 days
--- NOTE | 2019-03-31 13:20 | PN ---
PROGRESS NOTE DATE OF SERVICE: 03/31/2019 Patient is a 43-year-old pleasant white male admitted to the hospital with acute alcoholic pancreatitis. He presented to the hospital with epigastric pain of 3 days duration, noted to have elevated amylase and lipase consistent with acute pancreatitis. He is feeling much better today. Still has some abdominal discomfort, but needing pain medications less frequently. He reports no nausea, vomiting. PHYSICAL EXAMINATION: He appears comfortable. Blood pressure 137/86, pulse rate 110, temperature 98.9. HEENT examination unremarkable. Conjunctivae pink. Sclerae anicteric. Oral cavity no lesions. NECK: No JVD. No lymph node enlargement. CHEST: Clear to auscultation. HEART: Regular rate and rhythm. ABDOMEN: Soft. There was mild tenderness in the epigastric area. The rest of the abdomen was benign. Slightly distended. EXTREMITIES: No pedal edema. SKIN: No rashes. NEUROLOGIC: Alert and oriented x3. No focal deficits. LABS: From today WBC is 5.9, hemoglobin 11.7, platelets normal. Lipase is down to 651. ALT, AST, bilirubin and alkaline phosphatase are within normal limits. IMPRESSION: 1. Acute pancreatitis, alcohol related, which is gradually improving. The lipase has significantly improved. 2. Alcohol abuse. RECOMMENDATIONS: 1. Continue with a clear liquid diet and advance as tolerated. 2. Continue with symptomatic and supportive care. 3. Abstain from alcohol and will follow with him closely during his hospital stay. Thank you for this consultation. MMODL / ANGELICAN: [id number] /
[2019-03-31] MEDS: PANTOPRAZOLE 40 MG TABLET PO SCH (18:07)
[2019-03-31] MEDS: NICOTINE 14MG/24HR PATCH TRANSDERM SCH (18:07)
[2019-03-31] MEDS ORDERED: Potassium Replacement Protocol 1 EACH MISC MISCELLANE PRN (18:30)
[2019-03-31] MEDS: POTASSIUM CHLORIDE ER 20 MEQ TAB.ER PO SCH ×3 (19:26→21:10)
[2019-04-01] MEDS: LORazepam 2 MG/ML INJ IV PRN ×3 (02:46→21:06)
[2019-04-01] MEDS: ONDANSETRON 4 MG/2 ML VIAL IVP PRN (02:46)
[2019-04-01] MEDS: HYDROmorphone 1 MG/ML 1 ML SYRINGE IVP PRN ×2 (02:46→07:43)
[2019-04-01 07:24] LABS: Basophils # (A) 0.2 k/uL (0-0.2); Basophils % (A) 3 %; Eosinophils # (A) 0.2 k/uL (0-0.7); Eosinophils % (A) 4 %; HGB 12.5 gm/dL (13.0-17.5); Lymphocytes # (A) 0.7 k/uL (1.0-4.8); Lymphocytes % (A) 14 %; MCH 33.4 pg (25.0-35.0); MCHC 34.8 g/dL (31.0-37.0); MCV 96.2 fL (80.0-100.0); Mean Platelet Volume 7.2; Monocytes # (A) 0.4 k/uL (0-1.0); Monocytes % (A) 8 %; Neutrophils # (A) 3.7 k/uL (1.3-7.7); Neutrophils % (A) 69 %; Platelet Count 234 k/uL (150-450); RBC 3.74 m/uL (4.30-5.90); RDW 11.8 % (11.5-15.5); WBC 5.3 k/uL (3.8-10.6)
[2019-04-01 07:37] LABS: ALT 43 U/L (21-72); AST 47 U/L (17-59); African American GFR (CKD) >90 (>60 ml/min/1.73 sqM); Albumin 3.4 g/dL (3.5-5.0); Alkaline Phosphatase 54 U/L (38-126); Anion Gap 9 mmol/L; Blood Urea Nitrogen 8 mg/dL (9-20); Calcium 8.5 mg/dL (8.4-10.2); Carbon Dioxide 30 mmol/L (22-30); Chloride 95 mmol/L (98-107); Glucose 86 mg/dL (74-99); Potassium 4.2 mmol/L (3.5-5.1); Sodium 134 mmol/L (137-145); Total Bilirubin 0.4 mg/dL (0.2-1.3)
[2019-04-01] MEDS: PANTOPRAZOLE 40 MG TABLET PO SCH ×2 (07:43→16:45)
[2019-04-01] MEDS: NICOTINE 14MG/24HR PATCH TRANSDERM SCH (07:43)
[2019-04-01] MEDS: HEPARIN SODIUM,PORCINE 5,000 UNIT/ML 1 ML VIAL SQ SCH (07:43)
[2019-04-01] MEDS: SODIUM CHLORIDE 0.9% 1,000 ML IV SCH ×3 (07:46→23:07)
[2019-04-01] MEDS: HYDROcodone/APAP 7.5-325MG 1 EACH TAB PO PRN ×2 (12:36→19:05)
--- NOTE | 2019-04-01 20:29 | PN ---
PROGRESS NOTE DATE OF DICTATION: April 01, 2019 Patient is a 43-year-old pleasant white male admitted to the hospital with acute pancreatitis and that is alcohol related. He is doing much better. Abdominal pain is improving. No nausea, vomiting. On a full liquid diet, tolerating well. PHYSICAL EXAMINATION: He appears comfortable. No apparent distress. VITAL SIGNS: Stable. Blood pressure is 161/101, pulse is 95, temperature 98.2. HEENT examination unremarkable. Conjunctivae pink. Sclerae anicteric. Oral cavity no lesions. Neck: No JVD or lymph node enlargement. Chest was clear to auscultation. HEART: Regular rate and rhythm. ABDOMEN: Soft. Bowel sounds are positive. No organomegaly. Extremities: No pedal edema. Skin no rashes. NEUROLOGIC: Alert and oriented x3. No focal deficits. LABS: Done today, lipase is down to 671. ALT, AST, bilirubin and alkaline phosphatase are normal. WBC 5.3, hemoglobin 12.5, and platelets are normal. IMPRESSION: 1. Acute alcohol-related pancreatitis, gradually improving. Lipase almost normalized. The patient clinically has significantly improved. 2. History of heavy alcohol abuse. RECOMMENDATION: 1. Abstinence from alcohol. 2. Advance diet as tolerated. 3. Repeat labs in the morning and if he is doing well, he can be discharged home with an outpatient followup in 2-3 weeks. Thank you for this consultation. TETE / DOMINGUEZ: [id number] /
--- NOTE | 2019-04-01 20:42 | P.PN ---
Subjective Progress Note Date: 04/01/19 (Delayed charting seen at 1145) Principal diagnosis: Abdominal pain Patient seen and examined at bedside. He reports that he is feeling hungry kickback and last night. Abdominal pain is improving. Having normal bowel movements. Denies any chest pain, shortness of breath, or lower extremity edema. We discussed the importance of alcohol cessation. Objective - Vital Signs Vital signs: Vital Signs Temp 98.7 F 04/01/19 19:42 Pulse 100 04/01/19 19:42 Resp 18 04/01/19 19:42 BP 162/98 04/01/19 19:42 Pulse Ox 98 04/01/19 19:42 Intake & Output 04/01/19 04/01/19 04/02/19 06:59 18:59 06:59 Intake Total 0 1360 Balance 1940 1360 Intake: Intake, IV Titration 1200 960 Amount Sodium Chloride 0.9% 1, 1200 960 000 ml @ 120 mls/hr IV . Q8H20M [facility] Rx#:[id number] Oral 740 400 Other: Voiding Method Toilet # Voids 3 - Exam General: non toxic, no distress, appears at stated age Derm: warm, dry Head: atraumatic, normocephalic, symmetric Eyes: EOMI, no lid lag, anicteric sclera Mouth: no lip lesion, mucus membranes dry Cardiovascular: S1S2 reg, no murmur, positive posterior tibial pulse bilateral, Lungs: CTA bilateral, no rhonchi, no rales , no accessory muscle use Abdominal: soft, tender to palpation periumbilical, no guarding, no appreciable organomegaly Ext: no gross muscle atrophy, no edema, no contractures Neuro: CN II-XI grossly intact, no focal neuro deficits Psych: Alert, oriented, appropriate affect - Labs CBC & Chem 7: 04/01/19 06:37 04/01/19 06:37 Labs: Abnormal Lab Results - Last 24 Hours (Table) 04/01/19 04/01/19 Range/Units 06:37 06:37 RBC 3.74 L (4.30-5.90) m/uL Hgb 12.5 L (13.0-17.5) gm/dL Hct 36.0 L (39.0-53.0) % Lymphocytes # 0.7 L (1.0-4.8) k/uL Sodium 134 L (137-145) mmol/L Chloride 95 L (98-107) mmol/L BUN 8 L (9-20) mg/dL Total Protein 6.0 L (6.3-8.2) g/dL Albumin 3.4 L (3.5-5.0) g/dL Lipase 671 H (23-300) U/L Microbiology - Last 24 Hours (Table) 03/29/19 15:21 Blood Culture - Preliminary Blood No Growth after 72 hours Assessment and Plan Assessment: Acute pancreatitis likely alcohol-related -Pain control, advance to full liquid diet, antiemetics, IV fluids -Alcohol cessation recommended -GI recommendations: Follow-up outpatient 2-3 weeks Alcohol withdrawal with history of alcohol abuse -CIWA protocol -Thiamine and folic acid supplementation GERD -PPI Dyslipidemia -Statin on discharge -We'll need PCP for follow-up Tobacco abuse -Cessation -Nicotine replacement Elevated blood pressure without formal diagnosis of hypertension -May be secondary to patient not having a PCP but may also be a component of alc ohol withdrawal -Continue to monitor blood pressures -Start Norvasc SIRS secondary to pancreatitis, resolved DVT prophylaxis: Heparin Discussed with: patient, nursing Anticipated discharge: 1-[address]: home A total of 25 minutes was spent on the care of this complex patient more than 50% of the time was spent in counseling and care coordination.
[2019-04-01] MEDS: amLODIPine 5 MG TAB PO SCH (21:03)
[2019-04-02] MEDS: HEPARIN SODIUM,PORCINE 5,000 UNIT/ML 1 ML VIAL SQ SCH ×2 (01:32→09:31)
[2019-04-02] MEDS: HYDROcodone/APAP 7.5-325MG 1 EACH TAB PO PRN ×2 (02:14→09:32)
[2019-04-02] MEDS: LORazepam 2 MG/ML INJ IV PRN (02:18)
[2019-04-02 02:29] VITALS: RESP 16; TEMP 98.2
[2019-04-02] MEDS: PANTOPRAZOLE 40 MG TABLET PO SCH (09:31)
[2019-04-02] MEDS: amLODIPine 5 MG TAB PO SCH (09:31)
[2019-04-02] MEDS: NICOTINE 14MG/24HR PATCH TRANSDERM SCH (09:32)
[2019-04-02] MEDS: SODIUM CHLORIDE 0.9% 1,000 ML IV SCH (09:36)
[2019-04-02 10:30] VITALS: BP 132/95; PULSE 102
--- NOTE | 2019-04-02 11:36 | P.DS ---
Providers Date of admission: 03/29/19 13:42 Expected date of discharge: 04/02/19 Attending physician: Soumya Chirinos MD Consults: 03/29/19 13:45 Consult Physician Routine Consulting Provider: Meir Lobato Consult Reason/Comments: pancreatitis Do you want consulting provider notified?: Yes Primary care physician: Stated None Hospital Course: Discharge Diagnosis: Acute pancreatitis, expect alcohol-induced Alcohol withdrawal GERD Dyslipidemia Elevated blood pressure without formal diagnosis of hypertension-pain medications for treatment Tobacco abuse Hospital Course: Patient is a 43-year-old male past medical history of chronic alcoholism and GERD who presented to the emergency department with intractable nausea and vomiting. In the emergency department he underwent an extensive evaluation. On arrival to the ER he was tachycardic with a pulse of 140 and hypertensive with a blood pressure of 147/104. Initial laboratory analysis revealed an elevated white blood cell count at 20.2, total bilirubin 1.6, and lipase of 4087. CT of the abdomen and pelvis demonstrated uncomplicated acute pancreatitis without necrosis or well-formed fluid collection. Liver and gallbladder showed diffuse fatty infiltration. He was subsequently diagnosed with acute pancreatitis. He was started on IV fluids, pain control, and antiemetics. Is admitted for further monitoring. GI was consulted who agreed with current plan of care. His diet was slowly advanced tolerated this well. Blood work revealed elevated triglycerides at greater than 400. He was also found to be hypertensive. He was started on Norvasc. He was transitioned to oral pain medications. He was determined stable for discharge home. He will start Zocor in the next 5 days once his diet has returned back to normal. He'll continue with Norvasc. He will establish with Dr. Coats out of [place] for her primary care physician. She'll follow up with Dr. Grace in 2-3 weeks. Patient seen and examined at bedside. Belly pain is much improved, no nausea, tolerating his diet, no shortness of breath, no edema Vital signs reviewed and stable. General: non toxic, no distress, appears at stated age Derm: warm, dry Head: atraumatic, normocephalic, symmetric Eyes: EOMI, no lid lag, anicteric sclera Mouth: no lip lesion, mucus membranes moist Cardiovascular: S1S2 reg, no murmur, positive posterior tibial pulse bilateral, Lungs: CTA bilateral, no rhonchi, no rales , no accessory muscle use Abdominal: soft, + tender to palpation periumbilical, no guarding, no appreciable organomegaly Ext: no gross muscle atrophy, no edema, no contractures Neuro: CN II-XI grossly intact, no focal neuro deficits Psych: Alert, oriented, appropriate affect A total of 35 minutes of time were spent preparing this complex discharge summary . Pertinent Studies: CT abdomen and pelvis-acute pancreatitis Abdominal ultrasound-hepatic steatosis, hepatocellular disease, hepatomegaly, gallbladder with some sludge Patient Condition at Discharge: Stable Plan - Discharge Summary Discharge Rx Participant: No New Discharge Prescriptions: New HYDROcodone/APAP 7.5-325MG [[place] 7.5-325] 1 each PO Q6H PRN #24 tab PRN Reason: Pain amLODIPine [Norvasc] 5 mg PO DAILY #30 tab Discharge Medication List HYDROcodone/APAP 7.5-325MG [[place] 7.5-325] 1 each PO Q6H PRN #24 tab 04/02/19 [Rx] amLODIPine [Norvasc] 5 mg PO DAILY #30 tab 04/02/19 [Rx] Follow up Appointment(s)/Referral(s): Gabrielle Young MD [STAFF PHYSICIAN] - 3 Weeks None,Stated [Primary Care Provider] - 1-2 days Bubba Coats MD [REFERRING] - 1 Week Patient Instructions/Handouts: Pancreatitis (DC), Low Fat Diet (DC) Activity/Diet/Wound Care/Special Instructions: Activity: As tolerated Return to work on 04/06/19 Diet: Soft bland diet then advance to low fat Special Instructions: Abstain from alcohol, no driving while using [place]
== END 2019-04-02 13:18 | disposition home or self-care (01) | DRG 439 ==
LOC: EC 11:24 → 4SSUR 13:42
PROVIDERS: ADMIT Family Medicine; ATTEND Family Medicine
DX: K85.20 Alcohol induced acute pancreatitis without necrosis or infection (principal); F10.239 Alcohol dependence with withdrawal, unspecified; R65.10 Systemic inflammatory response syndrome (SIRS) of non-infectious origin without acute organ dysfunction; R16.0 Hepatomegaly, not elsewhere classified; K76.0 Fatty (change of) liver, not elsewhere classified; E78.1 Pure hyperglyceridemia; E78.5 Hyperlipidemia, unspecified; E86.0 Dehydration; F17.200 Nicotine dependence, unspecified, uncomplicated; K21.9 Gastro-esophageal reflux disease without esophagitis; R03.0 Elevated blood-pressure reading, without diagnosis of hypertension; Z81.1 Family history of alcohol abuse and dependence
CPT/HCPCS: 36415; 74022; 74177; 76705; 80053; 80061; 80320; 81001; 83036; 83605; 83690; 85025; 85610; 87040; 96361; 96372; 96374; 96375; 99285